=== PATIENT | male | born 1945 | race Caucasian/White ===

== ENCOUNTER 2018-07-26 13:25 | Emergency (ER) | payer MEDICARE, OTHER ==
[~2018-07-26] VITALS: Ht 188 cm; Wt 90.7 kg
[2018-07-26 13:58] LABS: BASOPHILS ABSOLUTE AUTO 0.07 K/mm3 (0.00-0.23); BASOPHILS PERCENT AUTO 1 % (0-2); EOSINOPHILS ABSOLUTE AUTO 0.14 K/mm3 (0.00-0.68); EOSINOPHILS PERCENT AUTO 1 % (0-6); Hematocrit 43.7 % (37.0-53.0); Hemoglobin 13.9 g/dL (13.5-17.5); IMMATURE GRAN ABSOLUTE AUTO 0.03 K/mm3 (0.00-0.10); IMMATURE GRAN PERCENT AUTO 0 % (0-1); LYMPHOCYTES ABSOLUTE AUTO 1.35 K/mm3 (0.84-5.20); LYMPHOCYTES PERCENT AUTO 14 % (21-46); MONOCYTES ABSOLUTE AUTO 0.94 K/mm3 (0.16-1.47); MONOCYTES PERCENT AUTO 10 % (4-13); Mean Corpuscular HGB 26.9 pg (26.0-34.0); Mean Corpuscular HGB Conc 31.8 g/dL (31.5-36.5); Mean Corpuscular Volume 85 fL (80-100); NEUTROPHILS ABSOLUTE AUTO 7.24 K/mm3 (1.96-9.15); NEUTROPHILS PERCENT AUTO 74 % (41-73); Platelet Count 302 K/mm3 (150-400); RDW Coefficient Variation 13.5 % (11.7-14.2); Red Blood Cell Count 5.17 M/mm3 (4.30-5.90); White Blood Cell Count 9.77 K/mm3 (4.00-11.30)
[2018-07-26 14:40] LABS: Alanine Aminotransfer (ALT/SGP 25 U/L (12-78); Albumin, Blood 3.1 g/dL (3.4-5.0); Albumin/Globulin Ratio 0.8 (0.8-1.8); Alk Phos 97 U/L (50-136); Anion Gap 6 mmol/L (6-16); Aspartate Aminotrans (AST/SGOT 14 U/L (12-37); Bilirubin, Total 0.4 mg/dL (0.1-1.0); Blood Urea Nitrogen 18 mg/dL (8-24); Bun/Creatinine Ratio 15.4 (12.0-20.0); CO2, Blood 26 mmol/L (21-32); Calcium, Blood 8.1 mg/dL (8.5-10.1); Chloride, Blood 106 mmol/L (98-108); Creatinine, Blood 1.17 mg/dL (0.60-1.20); Globulin, Blood 3.7 g/dL (2.2-4.0); Glomerular Filtration Rate >60 (60-); Glucose, Blood 95 mg/dL (70-99); Potassium, Blood 4.3 mmol/L (3.5-5.5); Sodium, Blood 138 mmol/L (136-145); Total Protein, Blood 6.8 g/dL (6.4-8.2); Troponin I <0.015 ng/mL (0.000-0.040)
[2018-07-26] MEDS ORDERED: ALBU90OI INH (15:48)
[2018-07-26] MEDS ORDERED: Prednisone20 MG PO (15:48)
[2018-07-26] MEDS ORDERED: Augmentin 875-1 EACH PO (15:48)
[2018-07-26] MEDS ORDERED: Aerochamber1 EACH INH (15:50)
== END 2018-07-26 16:08 | disposition home or self-care (01) ==
LOC: ER 13:25
PROVIDERS: Physician Assistant
DX: R05 Cough (principal); F17.200 Nicotine dependence, unspecified, uncomplicated
CPT/HCPCS: 36415; 71046; 80053; 83880; 84484; 85025; 93005; 93010; 94640; 99284-25

== ENCOUNTER 2021-03-06 11:39 | Day surgery (SDC) | payer MEDICARE, OTHER ==
[~2021-03-06] VITALS: Ht 188 cm; Wt 88.4 kg
[~2021-03-06 11:39] MED LIST: ALBU90OI INH; Aerochamber1 EACH INH; Augmentin 875-1 EACH PO; CALCIUM-MAGNES1 EAC9 PO; CYCL10 PO; Chantix1 MG PO; EPINEPHRIN0.3 MG/0.1 IM; FURO20 PO; GABAPENTIN600 MG PO; HYDR1TAB94 PO; LOSA50 PO; LOSARTAN POTAS100 M1 PO; MULTIPLE VITAM1 EACH PO; POTA10T PO; Prednisone20 MG PO; SILDENAFIL CIT100 MG
== END 2021-03-06 14:00 | disposition home or self-care (01) ==
LOC: ORSCSDS 11:39
PROVIDERS: Student in an Organized Health Care Education/Training Program
PROC: 0DBM8ZX Excision of Descending Colon, Via Natural or Artificial Opening Endoscopic, Diagnostic (ICD-10-PCS; principal; 2021-03-06 12:45)
PROC: 0DBK8ZX Excision of Ascending Colon, Via Natural or Artificial Opening Endoscopic, Diagnostic (ICD-10-PCS; principal; 2021-03-06 12:45)
PROC: 0DBL8ZX Excision of Transverse Colon, Via Natural or Artificial Opening Endoscopic, Diagnostic (ICD-10-PCS; principal; 2021-03-06 12:45)
DX: Z12.11 Encounter for screening for malignant neoplasm of colon (principal); D12.3 Benign neoplasm of transverse colon; K64.4 Residual hemorrhoidal skin tags; K57.30 Diverticulosis of large intestine without perforation or abscess without bleeding; Z86.010 Personal history of colon polyps; J44.9 Chronic obstructive pulmonary disease, unspecified; I10 Essential (primary) hypertension; F17.210 Nicotine dependence, cigarettes, uncomplicated
CPT/HCPCS: 88305; J2704; J7120